=== PATIENT | female | born 1945 | race Caucasian/White ===

== ENCOUNTER 2024-04-03 08:00 | Outpatient (RCR) | payer MEDICARE, OTHER, SELFPAY ==
--- NOTE | 2024-03-05 10:59 | PTOPEVAL1 ---
Assessment and note entered by Kait Ponce, PT Evaluation Information Assessment Status Evaluation ICD-10 Condition Codes (PT) Pain in right hip M25.551,Pain in left hip M25.552 ,R26.9,Weakness R53.1 Subjective Information Pt states had been having pain in both hips this Spring and Summer but seems to have eased. notes she was also having odd things like tripping or getting out of the bath crashed to the floor landed on my left hip . Legs were weaker at this time. States pain has eased since then but also has not been walking. In this time had switched physicians so took time to get pain addressed. Was resting because didn't know what she should or shouldn't do so wasn't doing much. Started walking in the last month. States once in a while will have pain in the left hip and difficult getting into her husbands mid- sized car. Notes also sitting long periods, after getting up would have increased pain. Reports has been limiting herself with her activities, going out because of the pain, limiting taking baths because of her fall. Reported Pain Level Pain Score 0,0: Self Report Assessment PT Clinical Summary Pt presents with diagnosis of R/L hip pain. She reports multiple times she feels the pain has resolved and she is over this issue though she also verbalizes understanding of having arthritis especially in the left hip. Evaluation shows balance and gait abnormalities putting her at higher risk for falls, shows significant gluteal weakness in shannon gluteus medius and left gluteus juan c, significantly reduced ROM L hip and mildly reduced ROM R hip. She reports she is increasing her activity level again however she reports rapid weight loss over the last few months (~10 lbs per month) without change in lifestyle, and has notable cognitive deficit demo'd by difficulty answering questions, being tangential in answers, and also multiple times incomplete sentences. She has been strongly encouraged to call her PCP and discuss the rapid weight loss with him. For her hips, she was educated in benefits of addressing the ROM, strength, and balance/ambulation deficits to reduce likelihood of return pain
--- NOTE | 2024-03-05 11:00 | OPREHPOC ---
Outpatient Therapy Plan of Care This is a Multidisciplinary Plan of Care that may contain components documented by all disciplines (PT, OT, and ST.) PT Goal 1 Goal / Goal Update Pt will be independent in HEP Pt will verbalize understanding of diagnosis and prognosis Target Visit 5 PT Problem 2 PT Problem #2 Impaired Range of Motion PT Goal 1 Goal / Goal Update Pt will demo ROM flexion left hip 110 Target Visit 10 PT Goal 2 Goal / Goal Update Pt will demo internal rotation left hip 10 at 90/ 90 position Target Visit 10 PT Problem 3 PT Problem #3 Impaired Range of Motion PT Goal 1 Goal / Goal Update Pt right hip flexion will demo 120 degrees Target Visit 10 PT Problem 4 PT Problem #4 Impaired Strength PT Goal 1 Goal / Goal Update Pt will demo gluteus medius strength of 3+/5 shannon Target Visit 10 PT Goal 2 Goal / Goal Update Pt will demo left hip extension of 4/5 LLE PT Problem 5 PT Problem #5 Impaired Gait PT Goal 1 Goal / Goal Update Pt will demo normalized gait pattern with appropriate shoe mitchell, full clearance shannon, and dorsiflexion control shannon Target Visit 10
--- NOTE | 2024-04-03 08:58 | PTOPDC ---
Assessment and note entered by Kait Ponce, PT Evaluation Information Assessment Status Discharge ICD-10 Condition Codes (PT) Pain in right hip M25.551,Pain in left hip M25.552 ,R26.9,Weakness R53.1 Subjective Information Pt reports when she started therapy had hip pain and therapy has been like a miracle . States she is trying to do her exercises but has a few she is still unclear on. Pt states she twila a prolapsed uterus that has not been bothering her up until this week and now is. Wants to make sure this doesn't interfere with her exercises or visa versa. Pt states energy levels are getting better. States since starting her exercises has gotten better. States the in a fog feeling is better but still feels like she has a little fog. Pt states she is walking her block at home, has thought about walking a second block but hasn't tried it yet. Reported Pain Level Pain Score 0,0: Self Report Assessment PT Clinical Summary Pt has presented to therapy consistently for her bilat hip pain. She reports feeling much better, with her highest pain level being 3/10 and describes as achy at times. Demo's greatly improved ROM shannon without discomfort, greatly improved strength bilat without discomfort, and improved safety with her gait. She has also returned to walking her block and is planning to progress this to two blocks soon. Pt has met all of her PT and personal goals, thus she will be discharged from therapy. Plan of Care PT Services Indicated No
== END 2024-04-03 15:02 | disposition home or self-care (01) ==
LOC: ANHGOSHPT 08:00
PROVIDERS: PCP Internal Medicine; Visit Provider Orthopaedic Surgery
DX: M25.551 Pain in right hip (principal); M25.552 Pain in left hip
CPT/HCPCS: 97110; 97112; 97162; 97530; 97750

== ENCOUNTER 2024-06-10 11:37 | Outpatient (CLI) | payer MEDICARE, OTHER, SELFPAY ==
[2024-06-10 11:58] LABS: Basophils Percent Auto 0.6 % (0.2-1.2); Eosinophils Percent Auto 0.4 % (0-4.4); Hematocrit 45.5 % (37.0-47.0); Hemoglobin 15.9 g/dL (12.0-15.0); Immature Granulocyte Absolute 0.02 K/mm3 (0.00-0.031); Immature Granulocyte Percent A 0.4 % (0-0.5); Lymphocytes Absolute Auto 1.36 K/mm3 (0.9-3.2); Lymphocytes Percent Auto 26.9 % (18.3-44.2); Mean Corpuscular HGB Conc 34.9 g/dl (32-36); Mean Corpuscular Hemoglobin 30.9 pg (26-34); Mean Corpuscular Volume 88.3 fl (80-100); Mean Platelet Volume 9.9 fl (7.4-10.4); Monocytes Absolute Auto 0.2 K/mm3 (0.1-0.6); Monocytes Percent Auto 4.7 % (2.6-8.5); Neutrophils Absolute Auto 3.4 K/mm3 (1.3-6.7); Platelet Count Result 202 k/mm3 (150-375); Red Blood Count 5.15 M/mm3 (4.2-5.4); Red Cell Distribution Width 11.7 % (11.5-14.5); White Blood Count 5.1 K/mm3 (4.5-10.0)
[2024-06-10 16:58] LABS: Alanine Aminotransferase 24 U/L (6-35); Albumin Level 4.5 g/dL (3.5-5.1); Alkaline Phosphatase 60 U/L (38-126); Anion Gap 6 mmol/L (4-12); Aspartate Amino Transferase 42 U/L (14-36); Bilirubin,Total 0.7 mg/dL (0.2-1.3); Blood Urea Nitrogen 19 mg/dL (7-17); Calcium 9.1 mg/dL (8.4-10.2); Carbon Dioxide 29 mmol/L (22-30); Chloride 104 mmol/L (98-107); Estimated Glomerular Filt Rate > 60; Glucose 97 mg/dL (65-110); Lactate Dehydrogenase 231 U/L (120-246); Potassium 3.9 mmol/L (3.4-5.0); Sodium 139 mmol/L (137-145)
== END 2024-06-10 11:38 | disposition home or self-care (01) ==
PROVIDERS: PCP Internal Medicine; Visit Provider Internal Medicine Hematology & Oncology
DX: R63.4 Abnormal weight loss (principal)
CPT/HCPCS: 36415; 80053; 83615; 85025

== ENCOUNTER 2024-12-09 08:53 | Outpatient (CLI) | payer MEDICARE, OTHER, SELFPAY ==
--- OUTSIDE RECORDS SUMMARY | 2024-12-09 08:59 | XMS_ITS | CONTINUITY OF CARE DOCUMENT ---
Author Name deanna huerta Address Unknown Organization [facility] Address [address] [place] [address] Phone [phone] Care Team Providers Care Ladle Pourer Name Role Phone Zion Flores MD Unavailable ABDOULAYE DICKERSON MD Unavailable ABDOULAYE DICKERSON MD Unavailable [phone] PROBLEMS Condition Status Date Provider Notes Asthma active Zion Flores MD Hyperlipidemia completed - Zion Flores MD Family History of CVA or Stroke: completed - Zion Flores MD Familial hypercholesterolemia completed 04/03/18 - Zion Flores MD Hyperlipidemia active Zion Flores MD Weight loss active Zion Flores MD Syncope--echo ef nl, carotid <50%, 08/2024 active Gilson Ochoa FAMILY HISTORY OF HEART DISE ASE, calcium score 0 in 02/2020 active Gilson Ochoa ENCOUNTERS Date Type Provider Location Encounter Diag nosis - In-person encounter Office Visit Zion Flores MD [facility] Syncope--echo ef nl, carotid <50%, 09/04 - In-person encounter Office Visit Zion Flores MD [facility] Syncope--echo ef nl, carotid <50%, 09/04 - In-person encounter Office Visit Zion Flores MD [facility] - In-person encounter Office Visit Zion Flores MD [facility] Familial hypercholesterolemiaHyperlipidemiaWeight loss - In-person encounter Office Visit Zion Flores MD [facility] FAMILY HISTORY OF HEART DISEASE, calcium score 0 in 02/2020 - In-person encounter Office Visit Zion Flores MD [facility] - In-person encounter Office Visit Zion Flores MD [facility] - In-person encounter Office Visit Zion Flores MD [facility] HyperlipidemiaFamily History of CVA or Stroke:FAMILY HISTORY OF HEART DISEASE, calcium score 0 in 02/2020 - In-person encounter Office Visit Zion Flores MD [facility] FAMILY HISTORY OF HEART DISEASE, calcium score 0 in 02/2020 VITAL SIGNS Date Observation Value Provider Body Mass Index (Ratio) 22.26 kg/m2 Juan Francisco Flores MD blood pressure, diastolic 82 mm[Hg] Rickie Garzas blood pressure, systolic 167 mm[Hg] Ashley Lozano pulse rate 83 /min Lena Garza s oxygen saturation, oximetry 94 % Lena Lozano weight E&M 114 [lb_av] Lena Garza s blood pressure, cuff size regular Br joan Lozano height E&M 60 [in_i] Lena Garza s Body Mass Index (Ratio) 22.14 kg/m2 Juan Francisco Flores MD blood pressure, diastolic 88 mm[Hg] Ky james Cason blood pressure, systolic 149 mm[Hg] Kyl wolf Cason oxygen saturation, oximetry 96 % Genna Cason pulse rate 71 /min Genna Cason respiratory rate E&M 12 /min Genna cleary weight E&M 113.4 [lb_av] Genna Yoav blood pressure, cuff size regular Kam ramirez Yoav height E&M 60 [in_i] Genna Yoav Body Mass Index (Ratio) 21.95 kg/m2 Juan Francisco Flores MD blood pressure, diastolic 94 mm[Hg] Kam stone Carrillo blood pressure, systolic 134 mm[Hg] Steffany dumont Carrillo oxygen saturation, oximetry 98 % [facility] pulse rate 94 /min [facility] blood pressure, cuff size regular Kam chase Carrillo weight E&M 112.4 [lb_av] [facility] height E&M 60 [in_i] [facility] Body Mass Index (Ratio) 22.50 kg/m2 Juan Francisco Flores MD blood pressure, cuff size regular Blake atwood Rodríguez blood pressure, diastolic 82 mm[Hg] Ta bitha Rodríguez blood pressure, systolic 128 mm[Hg] Tab itha Rodríguez respiratory rate E&M 12 /min Yarelis Rdoríguez weight E&M 115.2 [lb_av] Yarelis Rodríguez oxygen saturation, oximetry 97 % Yarelis Rodríguez pulse rate 68 /min Yarelis Rodríguez height E&M 60 [in_i] Yarelis Rodríguez Body Mass Index (Ratio) 23.43 kg/m2 Juan Francisco Flores MD weight E&M 120 [lb_av] Gilson Ochoa blood pressure, cuff size regular Ish Weir blood pressure, diastolic 72 mm[Hg] Ish Weir blood pressure, systolic 139 mm[Hg] Aida Weir pulse rate 79 /min Malinda Weir respiratory rate E&M 18 /min Malinda Weir oxygen saturation, oximetry 97 % Malinda Weir Body Mass Index (Ratio) 24.02 kg/m2 Juan Francisco Flores MD blood pressure, diastolic 70 mm[Hg] Ri az Don blood pressure, systolic 120 mm[Hg] Yeny z medzacharisse weight E&M 123 [lb_av] Gilson medzacharisse Body Mass Index (Ratio) 25.50 kg/m2 Juan Francisco Flores MD blood pressure, diastolic 70 mm[Hg] Li nkLogyue blood pressure, systolic 130 mm[Hg] Peyton kLog blood pressure, diastolic 70 mm[Hg] Vishnu Winkler blood pressure, systolic 130 mm[Hg] Jennifer Dailysophia Winkler oxygen saturation, oximetry 98 % Fortunato Winkler respiratory rate E&M 16 /min Olya sophia YingWinkler pulse rate 80 /min Fortunato Delgado latricia weight E&M 130.6 [lb_av] Fortunato Ying bart height E&M 60 [in_i] FortunatoJennifer Yinge latricia Body Mass Index (Ratio) 25.78 kg/m2 Juan Francisco Flores MD respiratory rate E&M 16 /min Tonsha Aparicio pulse rate 72 /min Tonsha Aparicio oxygen saturation, oximetry 97 % Tonsha Aparicio blood pressure, diastolic 80 mm[Hg] To nsha Aparicio blood pressure, systolic 150 mm[Hg] Ton sha Aparicio weight E&M 132 [lb_av] Tonsha Aparicio blood pressure, resting Yes Tons barrientos Aparicio height E&M 60 [in_i] Tonsha Aparicio Body Mass Index (Ratio) 25.58 kg/m2 Juan Francisco Flores MD blood pressure, resting No [facility] blood pressure, diastolic 80 mm[Hg] To [facility] blood pressure, systolic 153 mm[Hg] Ton [facility] oxygen saturation, oximetry 97 % [facility] respiratory rate E&M 16 /min [facility] pulse rate 90 /min [facility] weight E&M 131 [lb_av] [facility] height E&M 60 [in_i] [facility] ALLERGIES Allergy Name Onset Date Reaction Criticality Status PENICILLIN High Criticality active HISTORY OF MEDICATION USE Medication Status Instructions Dates Provider Indications Com ments ezetimibe 10 mg tablet active TAKE 1 TABLET BY MOUTH EVERY DAY Zion Flores MD Ventolin HFA 90 mcg/actuation HFA aerosol inhaler active Inhale 1-2 puff using inhaler every six hours as needed Zion Flores MD ezetimibe 10 mg tablet completed 1 tablet by mouth once a day 8 - 7 Brian Shelley levalbuterol tartrate 45 mcg/actuation HFA aerosol inhaler active Inhale 2 puff by mouth every six hours 1 Zion Flores MD Asthma SOCIAL HISTORY Date Observation Value Provider smoking status Never smoker Gilson Ochoa smoking status Never smoker Zion Flores MD smoking status Never smoker Malinda Carmella social history E&M S moking History: Nancy isbell has never smoked. Gilson Ochoa social history reviewed E&M revi ewed - no changes required Gilson Ohcoa social history reviewed E&M revi ewed - no changes required Zion Flores MD smoking status Never smoker Fortunato Alex social history E&M S moking History: Nancy isbell has never smoked. Gilson Ochoa social history reviewed E&M revi ewed - no changes required Gilson Ochoa number of grandchildren Zion Flores MD J renearadha Shelley social history E&M S moking History: Nancy isbell has never smoked. Brian Shelley social history reviewed E&M revi ewed - no changes required Brian Shelley smoking status Never smoker Tramaine Aparicio social history reviewed E&M revi ewed - no changes required Nasim Messina social history E&M S moking History: Nancy isbell has never smoked. Nasim Messina smoking status Never smoker Tramaine Aparicio FAMILY HISTORY Family Member Condition Father Family History of Hy pertension: Father Family History of Hy pertension: Father Family History of CV A or Stroke: Mother Family History of Hy perlipidemia: Full Sister Family History of Hy perlipidemia: Father Family History of Hy pertension: INSURANCE PROVIDERS Payer name Policy type / Coverage type [place] [employer] party ID [id number] [place] MEDICARE Medicare [id number] ADVANCE DIRECTIVES Name Date DISCUSSED - NO DECISION MADE TREATMENT PLAN Date Name Performer [id number],S, Gilson Ayoubmedza i [id number],S, Gilson Ayoubmedza i [id number],S, Gilson Ayoubmedza i [id number],S, Gilson Ayoubmedza i [id number],S, Gilson Ahmedza i [id number],S, Gilson Ahmedza i [id number],S, Gilson Ayoubmedza i Cardiology Zion Flores MD Cardiology: H er updated medication list for this problem includes: Ventolin Hfa 90 Mcg/actuation Hfa Aerosol Inhaler (Albuterol sulfate) ..... Inhale 1-2 puff using inhaler every six hours as needed Levalbuterol Tartrate 45 Mcg/actuation Hfa Aerosol Inhaler (Levalbuterol tartrate) ..... Inhale 2 puff by mouth every six hours Zion Flores MD Cardiology:This visi t has been a part of the consistent, comprehensive, and ongoing management of the chronic medical condition(s) listed above for the patient. Zion Flores MD Cardiology Zion Flores MD Cardiology:This visi t has been a part of the consistent, comprehensive, and ongoing management of the chronic medical condition(s) listed above for the patient. Zion Flores MD Cardiology Zion Flores MD Cardiology Zion Flores MD Cardiology Zion Flores MD Cardiology: H er updated medication list for this problem includes: Levalbuterol Tartrate 45 Mcg/actuation Hfa Aerosol Inhaler (Levalbuterol tartrate) ..... Inhale 2 puff by mouth every six hours Zion Flores MD Cardiology Zion Flores MD Cardiology Gilson Ahmedzai Cardiology Gilson Ahmedzai Cardiology Gilson Ahmedzai Cardiology Gilson Ahmedzai Cardiology Gilson Ahmedzai Cardiology Gilson Ahmedzai Cardiology Gilson Ahmedzai Cardiology Brian Shelley Cardiology Brian Shelley Cardiology Brian Shelley Cardiology Brian Shelley Cardiology - Zion Flores MD Cardiology - Zion Flores MD Cardiology - Zoin Flores MD Date Name TSH, free T4, total T3 LIPID PANEL B TYPE NATRIURETIC P EPTIDE (BNP) COMPREHENSIVE METABO LIC PANEL, W/EGFR Monitor - Telemetry (Mobile Cardiac) Carotid Duplex Bilat eral Complete Echo LIPID PANEL PROBNP, N TERMINAL IRON AND TOTAL IRON BINDING CAPACITY FERRITIN CBC (INCLUDES DIFF/P LT) COMPREHENSIVE METABO LIC PANEL, W/EGFR LIPID PANEL COMPREHENSIVE METABO LIC PANEL, W/EGFR LIPID PANEL CT, Coronary Calcium Score HISTORY OF PROCEDURES Procedure Date Procedure Name Provider Procedure Notes S tatus Complex e/m visit add on Zion Flores MD completed Complex e/m visit add on Zion Flores MD completed Complex e/m visit add on Zion Flores MD completed Complex e/m visit add on Zion Flores MD completed EKG Zion Flores MD completed EKG Zion Flores MD completed EKG Zion Flores MD completed CT- Coronary CA score Zion Flores MD completed EKG Zion Flores MD completed
--- OUTSIDE RECORDS SUMMARY | 2024-12-09 08:59 | XMS_ITS | Clinical Summary ---
Author Organization [facility] Thiago Krueger Address [address] [place] [address] Care Team Providers Care Diamond Sander Name Role Phone Bradford Calix MD Primary Care Provider Allergies Active Allergy Reactions Criticality Noted Date Comments Penicillins Rash Low 06/10/2024 Medications albuterol sulfate HFA 90 mcg/actuation aerosol inhaler 2 Puffs by See Admin Instructions route see administration instructions. Active ezetimibe (ZETIA) 10 mg tablet Take 10 mg by mouth daily. Active Active Problems No known active problems Encounters Date Type Department Care Team Description 12/04/2024 External Device Data [facility] ABSTRACTION Provider, Abstract 12/02/2024 External Device Data [facility] ABSTRACTION Provider, Abstract 11/18/2024 External Device Data [facility] ABSTRACTION Provider, Abstract from Last 3 Months Family History Medical History Relation Name Comments No Known Problems Child 1 No Known Problems Child 2 No Known Problems Child 3 Heart Disease Father Skin Cancer Mother No Known Problems Sister Relation Name Status Comments Child 1 Alive Child 2 Alive Child 3 Alive Father Mother Sister Alive Social History Tobacco Use Types Packs/Day Years Used Date Smoking Tobacco: Never Alcohol Use Standard Drinks/Week Comments Never 0 (1 standard drink = 0.6 oz pur e alcohol) Comments Unknown Sex and Gender Information Value Date Recorded Sex Assigned at Not on file Legal Sex Female 11:26 AM CDT Gender Identity Not on file Sexual Orientation Not on file Last Filed Vital Signs Vital Sign Reading Time Taken Comments Blood Pressure 157/89 06/10/2024 10:44 AM [employer] Pulse 71 06/10/2024 10:40 AM [employer] Temperature 36.5 C (97.7 F) 06/10/2024 10:40 AM [employer]ER Respiratory Rate 15 06/10/2024 10:40 AM [employer]ISHER Oxygen Saturation 98% 06/10/2024 10:40 AM [employer]ISHER Inhaled Oxygen Concentration - - Weight 50.4 kg (111 lb 3.2 oz) 06/10/2024 10:40 AM [employer] Height 149.9 cm (4' 11) 06/10/2024 10:40 AM [employer]ER Body Mass Index 22.46 06/10/2024 10:40 AM FUR POLISHER Plan of Treatment Upcoming Encounters Date Type Department Care Team (Late st Contact Info) Description 12/17/2024 10:00 AM CDT Office Visit [facility] Oncology and Hematology - Martín [address] [facility] [address] [place] [address] Joe Cho MD [address] [place] [address] Health Maintenance Due Date Last Done Comments DTAP/TDAP/TD VACCINES (1 - Tdap) 02/01/1964 PNEUMOCOCCAL VACCINE 50+ YEA RS (1 of 2 - PCV) 02/01/1964 RSV VACCINE (60+ or ) (1 - 1-dose 75+ series) 02/01/2020 INFLUENZA VACCINE (#1) 2024 COVID-19 Vaccine (3 - season) 2024, 09/14/2020 OSTEOPOROSIS SCREENING 04/06/2028 04/06/2023 ZOSTER VACCINE Completed 05/29/2019, 03/11/2019 Insurance MEDICARE PART A AND B [place] [facility] [place] [address] Care Teams Diamond Sander Relationship Specialty Start Date End Date Bradford Calix MD [address] [address] PCP - General Internal Medicine 06/10/24
--- OUTSIDE RECORDS SUMMARY | 2024-12-09 08:59 | XMS_ITS | Data Portability ---
Author Organization [place] [facility], Main Office Address [address] [place] [address] Care Team Providers Care Director Mba Name Role Phone JAYLA BRADFORD Primary Care Provider [phone] JORGE LUIS HAAS Orthopedic Surgeon [phone] DIMPLE CHO Hematology/Oncology ZION BOLAND Vp Care Management Assessment Encounter Date Assessment Date Assessment LastModified by Organization Details LastModified Time 12/03/2023 12/03/2023 04/06/23 Chol. 295H, LDL 213 H Gluc. 100 H, BUN 20 H, ALB. 4.5 H Not available 12/03/2023 09:29:39 04/07/2024 04/07/2024 04/06/23 Chol. 295H, LDL 213 H Gluc. 100 H, BUN 20 H, ALB. 4.5 H 11/27/2023: Dr Boland [facility] Gluc 108 Chol 267, LDL 184 WBC 8.4 Not available 04/03/2024 19:24:25 08/06/2024 08/06/2024 04/06/23 Chol. 295H, LDL 213 H Gluc. 100 H, BUN 20 H, ALB. 4.5 H 11/27/2023: Dr Mark HUERTA Gluc 108 Chol 267, LDL 184 WBC 8.4 06/10/2024: Dr Cho AST 42 HGB 15.9 Not available 08/06/2024 11:17:00 11/05/2024 11/05/2024 04/06/23 Chol. 295H, LDL 213 H Gluc. 100 H, BUN 20 H, ALB. 4.5 H 11/27/2023: Dr Boland [facility] Gluc 108 Chol 267, LDL 184 WBC 8.4 06/10/2024: Dr Cho AST 42 HGB 15.9 Not available 11/05/2024 10:37:00 Plan of Treatment Reminders Order Date Submit Date Provider Last Modified By Organization Details Last Modified Time Details Appointments Any 15 2024 08:30A M Bradford montgomery MD Not available Not available Not available Lab vitamin D, 25-hydrox y, total, serum 2024 025 MALLIKA [facility], [address], [place], [address], 11/05/2024 10:57:22 lipid panel, serum 2024 025 MALLIKA [facility], [address], [place], [address], 11/05/2024 10:57:23 CMP, serum or plasma 2024 025 MALLIKA [facility], [address], [address], [place], [address], 11/05/2024 10:57:22 CBC w/ auto diff 2024 025 MALLIKA [facility], [address], [place], [address], 11/05/2024 10:57:23 TSH + free T4, serum 2024 025 MALLIKA [facility], [address], [place], [address], 11/05/2024 10:57:22 vitamin D, 25-hydrox y, total, serum 2023 025 [email or web address] [facility], [address], [place], [address], 08/06/2024 11:25:27 lipid panel, serum 2023 025 [email or web address] [facility], [address] [facility], [place], [address], 08/06/2024 11:25:27 CMP, serum or plasma 2023 025 [email or web address] [email or web address] [facility], [address] [facility], [facility], [place], [address], 08/06/2024 11:25:27 CBC w/ auto diff 2023 025 [email or web address] [email or web address] [facility], [address] [facility], [facility], [place], [address], 08/06/2024 11:25:27 TSH + free T4, serum 2023 025 [email or web address] [facility], [address] [facility], [facility], [place], [address], 08/06/2024 11:25:27 vitamin D, 25-hydrox y, total, serum 2023 024 [email or web address] [facility], [address] [facility], [facility] [address], [place], [address], 10/08/2024 08:11:38 lipid panel, serum 2023 024 [email or web address] [facility], [address] [facility], [facility] [address], [place], [address], 10/08/2024 08:11:37 CMP, serum or plasma 2023 024 MALLIKA [facility], [address] [facility], [facility] 2, [place], [address], 06/10/2024 21:03:06 CBC w/ auto diff 2023 024 MALLIKA [facility], [address] [facility], [facility] 2, [place], [address], 06/10/2024 16:46:19 TSH + free T4, serum 2023 024 [email or web address] [facility], [address] [facility], [facility] [address], [place], [address], 10/08/2024 08:11:37 vitamin D, 25-hydrox y, total, serum 2023 024 [email or web address] [facility], [address] [place] [address] 2, [place], [address], 06/10/2024 12:28:42 lipid panel, serum 2023 024 [facility], [address] [facility], [facility], [place], [address], 06/10/2024 12:28:41 CMP, serum or plasma 2023 024 [email or web address] [facility], [address] [place] [address], [facility] [address], [place], [address], 06/10/2024 12:28:41 CBC w/ auto diff 2023 024 [email or web address] [facility], [address] [facility] 2, [place], [address], 06/10/2024 12:28:41 TSH + free T4, serum 2023 024 [email or web address] [facility], [address] [facility] 2, [place], [address], 06/10/2024 12:28:42 Referral orthopedi c surgeon referral - Please call patient to schedule an appointme nt. Thank you. 2024 025 SRINI Haas, [address], [address], [place], [address], 11/06/2024 13:37:17 orthopedi c surgeon referral 2023 025 Jorge Luis Haas MD, [address], [place] [place], [address], 08/07/2024 09:58:07 cardiolog ist referral 2023 025 [email or web address] [place], [address], [address], [place], [address], 08/07/2024 09:58:07 hematolog ist/oncol ogist referral 2023 024 MALLIKA Cho MD, [address], [place], [address], 06/10/2024 15:44:11 orthopedi c surgeon referral 2023 024 [email or web address] 2 Jorge Luis Haas MD, [address] [facility] [address], [place], [address], 10/06/2024 08:24:28 pelvic floor therapy referral 2023 024 [email or web address] [facility], [address] [place], [address], 11/03/2024 08:47:09 cardiolog ist referral 2023 024 2 [place], [address], [address], [place], [address], 10/06/2024 08:24:29 orthopedi c surgeon referral 2023 024 [email or web address] Jorge Luis Haas MD, [address] [facility] [address] [place], [address], 06/11/2024 14:47:21 urologist referral 2023 024 [email or web address] Ector Whitehead MD, [address] [facility] [address], [address], [place], [address], 12/31/2023 08:21:49 cardiolog ist referral 2023 024 [place], [address], [address], 05/20/2024 10:30:15 Procedures None recorded. Surgeries None recorded. Imaging XR, hip + pelvis, bilateral , 3 or 4 view 2023 024 [facility], [address] [place] [address], [place], [address], 12/12/2023 16:31:12 Medication Orders None recorded. Patient TargetsNo targets recorded. Patient Instructions Encounter Date Encounter Id Patient Instructions Last Modified By Organization Details Last Modified Time 12/03/2023 [id number] dementia rating scale-2* [email or web address] 2 Not available 12/03/2023 17:46:17 depression screening* [email or web address] 2 Not available 12/03/2023 17:46:18 alcohol misuse* [email or web address] 2 Not available 12/03/2023 17:46:18 Timed Up and Go test (TUG)* [email or web address] 2 Not available 12/03/2023 17:46:18 multi-dimensiona l health assessment questionnaire* Not available 12/03/2023 10:27:21 Personalized a lt Plan and Screening Recommendations Advance Directives - Do you have one? Yes Advance Directives - Do we have your advance directive on file in your health record? No, please bring in a copy at your earliest convenience Primary Prevention/Interven tion (prevents or decreases the chance of common diseases from occurring) Smoking Risk: Non Smoker Alcohol Misuse Screening: Negative Weight: Appropriate Physical activity: Need more exercise/physical activity minimum of 20-30 minutes activity that causes mild breathlessness/day Nutrition: Average Refer to attached handout Heart-Healthy Diet: After Your Visit Fall Risk (screened today): Intermediate Refer to attached handout Preventing Falls: After your Visit Vaccines Pneumococcal: Recommended today Influenza: Your next one in the fall of this year Chronic Disease Risks Stroke: Intermediate Risk I have no recommendations Heart Attack: Intermediate Risk I have no recommendations Clogging of the Arteries: Intermediate Risk I have no recommendations Diabetes: Intermediate Risk Drastically limit sugar and products made with any type of flour (bread, pasta, cereal, cookies, crackers, etc.) Secondary Prevention/Interven tion (detects treatable diseases before they may cause symptoms, disability, or ) Breast Cancer Screening with mammogram: Cervical/Uterine/Ov kim Cancer Screening: Osteoporosis Screening: Date Screening Last Performed: Colon Cancer Screening: Date Screening Last Performed: Eye Disease Screening: Ordered Recommended today Recommended today, but you have declined No Eye exam necessary Your next exam in: Dementia Risk: Depression Screening: Active diagnosis, Continue current treatment plan [email or web address] Not available 12/03/2023 10:31:45 Reason for Referral Vp Care Management Referral for Hy perlipidemia Referring Physician: Bradford Calix Internal Medicine, Encounter Date: 12/03/2023 Urologist Referral for Cysto mauro Referring Physician: Bradford Calix Internal Medicine, Encounter Date: 12/03/2023 Orthopedic Surgeon Referral for Pain of bilateral hip joints Referring Physician: Samantha Tomlinson Medicine, Encounter Date: 12/12/2023 Orthopedic Surgeon Referral for Pain of bilateral hip joints Referring Physician: Samantha Tomlinson Medicine, Encounter Date: 04/07/2024 Vp Care Management Referral for Hy perlipidemia Referring Physician: Samantha Tomlinson Medicine, Encounter Date: 04/07/2024 Pelvic Floor Therapy Referra l for Cystocele Referring Physician: Samantha Tomlinson Medicine, Encounter Date: 04/07/2024 Referring Physician: Samantha Tomlinson, Encounter Date: 04/07/2024 Orthopedic Surgeon Referral for Pain of bilateral hip joints Referring Physician: Samantha Tomlinson, Encounter Date: 08/06/2024 Vp Care Management Referral for Hy perlipidemia Referring Physician: Bradford Calix, Internal Medicine, Encounter Date: 08/06/2024 Orthopedic Surgeon Referral for Pain of bilateral hip joints Please call patient to schedule an appointment. Thank you. Referring Physician: Bradford Calix, Internal Medicine, Encounter Date: 11/05/2024 Results Created Date Observation Date Name Description Value Unit Range Abnormal Flag Note LastModifiedBy Organization Detail LastModifiedTime 12/12/19 24 XR, hip + pelvi s, bilat eral, 3 or 4 view [facility] [address] [place], [place] [address] [phone] Patien t Name: NIKOLAS SAUCEDO [place] Access ion #: [id number] Sex: F : 1944 9 Dictat ed By: More Brandon Attend ing Physic dawit: NIKKO HARKINS Orderi ng Physic dawit: NIKKO HARKINS Exam Date: 2023 14:47 PM Exam Name: XR HIPS/P MARI BILAT 3-4V Admitt ing Diagno sis(es ): CLINIC AL INDICA TION: bilate ral hip pain TECHNI QUE: One radiog raphic views of the pelvis and two views of the bilate ral hip were obtain ed. Compar calos: None FINDIN GS/IMP RESSIO N: There is no eviden ce of acute fractu re or disloc ation. 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 Electr onical ly Signed by: More Brandon at 2023 15:29: 27 PM Page 1 [email or web address] [facility] ([facility]) [address] [place], [address], 12/18/2023 16:59:33 Result Notes None recorded. Problems Name Problem SNOMED Code Status Onset Date Resolution Date Notes Provider Name and Address Organization Details Recorded Time Asthma 324226171 Active Not Available [facility] 3 05:23:15 Closed fracture proximal humerus, greater tuberosity 517404090 Active Not Available [facility] 3 05:23:15 Foot pain 22426874 Active Not Available [facility] 3 05:23:15 Hyperlipid emia 06994324 Active Not Available [facility] 3 05:23:15 Chronic obstructiv e pulmonary disease 17877215 Active 2022 Not Available [facility] 3 05:23:15 Pain of left hip joint 9211075627340 00 Active 2023 Bradford bhatt MD [address], [address], [place], [address] , [facility] 4 10:03:37 Cystocele 929442217 Active 2023 Bradford bhatt MD [address], [address], [place], [address] , [facility] 4 10:04:32 Pain of bilateral hip joints 6349357564084 9100 Active 2023 Bradford bhatt MD [address], [place], [address] , [facility] 4 14:58:52 Unexplaine d weight loss 942576295 Active 2023 Bradford bhatt MD [address], [place], [address] , [facility] 4 10:06:43 Vitamin D deficiency 34335473 Active 2024 Bradford bhatt MD [address], [address], [place], [address] , [facility] 5 10:36:54 Problem Notes None recorded. Procedures Surgical History Date Name Laterality Status Provider Name and Address Organization Details Recorded Time 4 Medicare Wellness CPT Code, subsequent completed Yair Weiss LPN [facility] 11/29/2023 17:03:36 Imaging Results None recorded. Procedure Notes None recorded. Medical Equipment None Reported. Allergies Allergen ID Allergen Name Allergen Category Reaction Reaction Severity Criticality Documentation Date Start Date Code Code System Note Provider Name and Address Organization Details Recorded Time 75028 Product containin g penicilli n (product) medicatio n Not available Not available Not available 09/13/2022 97729 8001 SNOMED Not Available [facility] 3 15:43:51 Medications Name Sig Start Date Stop Date Status Note LastModified by Organization Details LastModified Time clindamycin HCl 300 mg capsule active Not Available Not Available Not Available neomycin-po lymyxin-dex ameth 3.5 mg/mL-10,00 0 unit/mL-0.1 % eye drops INSTILL 2 DROP INTO AFFECTED EYE(S) BY OPHTHALMI C ROUTE EVERY 4-6 HOURS active Not Available Not Available No t Available tobramycin 0.3 % eye drops active Not Available Not Available Not Available clotrimazol e-betametha sone 1 %-0.05 % topical cream APPLY TO THE AFFECTED AND SURROUNDI NG AREAS OF SKIN BY TOPICAL ROUTE 2 TIMES PER DAY IN THE MORNING AND EVENING FOR 2 WEEKS 03/11 completed Not Available Not Available Not Available albuterol sulfate HFA 90 mcg/actuati on aerosol inhaler INHALE 1 TO 2 PUFFS BY MOUTH EVERY 6 HOURS NEEDED active Not Available Not Available No t Available Vitamin D2 1,250 mcg (50,000 unit) capsule active Not Available Not Available Not Available clotrimazol e 1 % topical cream LILLIE EXT AA BID 03/11 completed Not Available Not Available Not Available ezetimibe 10 mg tablet TAKE 1 TABLET BY MOUTH EVERY DAY active Not Available Not Available No t Available levalbutero l HFA 45 mcg/actuati on aerosol inhaler INHALE 2 PUFFS BY MOUTH EVERY 6 HOURS 08/06 completed Not Available Not Available Not Available calcium 11/05 completed Not Available Not Available Not Available Fosteum 27 mg-20 mg-200 unit capsule TAKE 1 CAPSULE BY MOUTH TWICE DAILY DIRECTED 03/11 completed Not Available Not Available Not Available TL G-Fol OS 500 mg-1.1 mg tablet TAKE 1 TABLET BY MOUTH TWICE DAILY 03/11 completed Not Available Not Available Not Available Caltrate 600 plus D active Not Available Not Available N ot Available Lotemax 0.5 % eye gel drops active Not Available Not Available Not Available Prolensa 0.07 % eye drops active Not Available Not Available Not Available Shingrix (PF) 50 mcg/0.5 mL intramuscul ar suspension, kit 12/18 completed Not Available Not Available Not Available Vitals Date Recorded Body height Body mass index (BMI) Body weight Body temperature Heart rate Systolic And Diastolic Provider Name and Address Organization Details Last Updated DateTime 5 149.86 cm 22.8 kg/m2 74439.9 4 g 97.5 [degF] 78 /min 118/70 mm[Hg] LIBAN Logan [facility] [employer] [facility] 5 10:46:22 Date Recorded Body height Body mass index (BMI) Body weight Body temperature Heart rate Oxygen saturation Oxygen saturation in Arterial blood by Pulse oximetry Systolic And Diastolic Provider Name and Address Organization Details Last Updated DateTime 5 149.86 cm 22.9 kg/m2 54487.7 3 g 97.3 [degF] 72 /min 98 % 98 % 114/64 mm[Hg] Karla Darby MA [facility] [employer] [facility] 5 10:19:44 Date Recorded Body height Body mass index (BMI) Body weight Body temperature Heart rate Systolic And Diastolic Provider Name and Address Organization Details Last Updated DateTime 4 149.86 cm 23 kg/m2 15512.5 3 g 97.5 [degF] 78 /min 120/60 mm[Hg] Roxane Perez Wiley [facility] [employer] [facility] 4 09:26:32 Date Recorded Body height Body mass index (BMI) Body weight Body temperature Heart rate Systolic And Diastolic Provider Name and Address Organization Details Last Updated DateTime 4 149.86 cm 23.6 kg/m2 67417.3 1 g 97.6 [degF] 78 /min 122/68 mm[Hg] Roxane Perez Wiley [facility] [employer] [facility] 4 14:45:34 Date Recorded Body height Body mass index (BMI) Body weight Body temperature Heart rate Systolic And Diastolic Provider Name and Address Organization Details Last Updated DateTime 4 149.86 cm 22.4 kg/m2 03505.7 5 g 97.4 [degF] 78 /min 122/74 mm[Hg] LIBAN Logan [facility] [employer] [facility] 09:41:00 Social History Question Answer Notes LastModified by Organization Details LastModified Time Tobacco Smoking Status Never Smoker LIBAN Logan, KATHIA Chawla Adriane DE [employer] [facility] 12/03/2023 09:19:27 Do You Have An Advance Directive? Yes [email or web address] Information not available 12/03/2023 Are You Blind Or Do You Have Difficulty Seeing? No Information not available 12/03/2023 What Is Your Level Of Caffeine Consumption? Occasional Information not available 12/03/2023 In The 14 Days Before Symptom Onset, Have You Had Close Contact With A Laboratory-confi rmed COVID-19 While That Case Was Ill? No Information not available 12/03/2023 In The 14 Days Before Symptom Onset, Have You Had Close Contact With A Person Who Is Under Investigation For COVID-19 While That Person Was Ill? No Information not available 12/03/2023 Are You Deaf Or Do You Have Serious Difficulty Hearing? No Information not available 12/03/2023 What Type Of Diet Are You Following? GLUTENFREE Information not available 12/03/2023 What Is The Highest Grade Or Level Of School You Have Completed Or The Highest Degree You Have Received? [id number] Information not available 12/03/2023 Have There Been Any Changes To Your Family Or Social Situation? No [email or web address] Information not available 12/03/2023 What Is The Fluoride Status Of Your Home? Unknown Information not available 12/03/2023 Are There Any Guns Present In Your Home? No Information not available 12/03/2023 Do You Use Insect Repellent Routinely? Yes [email or web address] Information not available 12/03/2023 Where Do You Live? SingleLevelHouse Information not available 12/03/2023 Presence Of Domestic Violence No [email or web address] Information not available 12/03/2023 Guns Present In The Home? No Information not available 12/03/2023 Are You Able To Care For Yourself? Yes Information not available 12/03/2023 Are You Blind Or Do Yo Have Difficulty Seeing? No Information not available 12/03/2023 Are You Deaf Or Do You Have Serious Difficulty Hearing? No Information not available 12/03/2023 General Stress Level? Low Information not available 12/03/2023 Live Alone Of With Others? With Others [email or web address] Information not available 12/03/2023 Are You Following A Low Salt Diet? No [email or web address] Information not available 12/03/2023 Do You Have A Medical Power Of Sales Ledger Clerk? Yes Daughter Is TIFFANY [email or web address] Information not available 12/03/2023 What Was The Date Of Your Most Recent Tobacco Screening? 11/05/2024 [email or web address] Information not available 11/05/2024 Do You Have Any Pets? Yes Dog [email or web address] Information not available 12/03/2023 What Is Your Relationship Status? Information not available 12/03/2023 Do You Use Your Seat Belt Or Car Seat Routinely? Yes Information not available 12/03/2023 Do You Have Smoke And Carbon Monoxide Detectors In Your Home? Yes Information not available 12/03/2023 Are You Passively Exposed To Smoke? No Information not available 12/03/2023 Are There Any Smokers In Your House? No Information not available 12/03/2023 Do You Use Sunscreen Routinely? Yes [email or web address] Information not available 12/03/2023 Has Tobacco Cessation Counseling Been Provided? No N/a Information not available 12/03/2023 Have You Recently Traveled Abroad? No Information not available 12/03/2023 Do You Have Difficulty Walking Or Climbing Stairs? No Information not available 12/03/2023 Do You Have Any Dietary Restrictions? Yes Gluten Free Diet Information not available 12/03/2023 Sex: Female Functional Status Question Answer Note LastModified by Organizat ion Details LastModified Time Do you use any illicit or recreational drugs? No Information not available 12/03/2023 Do you or have you ever used any other forms of tobacco or nicotine? No Information not available 12/03/2023 What is your level of alcohol consumption? None Information not available 12/03/2023 Are you currently employed? No retired Information not available 12/03/2023 Do you have transportation difficulties? No Information not available 12/03/2023 Are you able to walk? YESWOREST Information not available 12/03/2023 Do you have difficulty doing errands alone? No Information not available 12/03/2023 Are you able to care for yourself? Yes Information n ot available 12/03/2023 Do you have difficulty dressing or bathing? No Information not available 12/03/2023 What is your exercise level? Moderate Information not available 12/03/2023 Mental Status Question Answer Note LastModified by Organizat ion Details LastModified Time Do you feel stressed (tense, restless, nervous, or anxious, or unable to sleep at night)? [id number] [email or web address] Information not available 12/03/2023 Do you have difficulty concentrating, remembering or making decisions? No [email or web address] Information no t available 12/03/2023 Family History Relationship Description Onset Age of this Age Resolved Age Notes LastModified by Organization Details LastModified Time Mother Hyperlipidem ia [email or web address] Not available 10:12:50 Mother Malignant melanoma [email or web address] Not available 10:12:50 Sister Hyperlipidem ia [email or web address] Not available 10:12:50 Sister Hypertensive disorder Not available 2023 09:16:10 Father Hypertensive disorder Not available 2023 09:16:10 Medical History No medical history recorded. Gynecological History Statement/Question Response How many live births 3 Date of Last Colonoscopy Date of Last Mammogram Date of LMP Most Recent Bone Density Date of Last Pap Current Control Method Menopause Obstetrics History GPAL:G 4 P 3 0 1 3 Type Value Multiple Births 0 Full Term 3 Induced 0 Spontaneous 1 Premature 0 Living 3 Ectopics 0 Total 4 Immunizations Vaccine Type Date Status Note Provider Wilberto wray and Address Organization Details Recorded Time zoster recombinant 9 completed LIBAN Logan null, [place] [facility] 04/07/2024 09:41:42 COVID-19, mRNA, LNP-S, PF, 30 mcg/0.3 mL dose 1 completed Roxane Perez RMA null, [place] - [facility] 04/07/2024 09:41:42 COVID-19, mRNA, LNP-S, PF, 30 mcg/0.3 mL dose 1 completed Roxane Perez RMA null, [place] [facility] 04/07/2024 09:41:42 zoster recombinant 9 completed Not Available [facility] 04/20/2023 05:23:15 Influenza, high-dose, trivalent, PF 5 completed Bradford Calix MD [address] [place] [address], [address] [address], [place], [address], [facility] 08/06/2024 11:25:27 Past Encounters Encounter ID Performer Location Encounter Start Date Encounter Closed Date Diagnosis/Indication Diagnosis SNOMED-CT Code Diagnosis ICD10 Code Diagnosis Note [id number] Bia Avalos MD [facility] myers [address] [place] [address] [place] [address] 01/24/2022 00:00:00 01/24/2022 21:16:32 [id number] Bia Avalos MD [facility] [place] [address] 04/03/2023 09:58:43 04/03/2023 10:28:53 Screening for malignant neoplasm of breast [id number] Z12.39 [facility] risk of osteoporosis [id number] Z91.89 Hyperlipidemia 01744914 E78.5 Watching diet [id number] Bradford bhatt MD [facility] Internal Med Reginaldo myers [address] [place] [address] 12/03/2023 08:58:11 12/03/2023 10:30:17 Adult health examination [id number] Z00.00 Screening for disorder [id number] Z13.9 Depression screening 171 420985 Z13.31 Hyperlipidemia 08327874 E78.[address] Boland [facility] 12/13/2022 , next in one year Screening - NAD 48750517 3 Z13.9 02/13/2022: Cologuard Neg. 04/06/23;vD exa. Osteopenia right total hip, Left hip, and spine. 04/09/23:ZULEIMA Dorado Neg. BIRADS Neg.shingr ix vaccine UTDGet yearly flu shotGet Tdap if not doneGet COVID 19 vaccineGet RSV vaccine RTC in 3 months, do labs, ER if worse, she did verbalize her understand ing of the above Screening for osteoporosis 799228967 Z13.820 Asthma 528737282 J45.90 9 On albuterolD oes wellRefill done by [facility] Dr Boland Pain of le ft hip joint [id number] 10521 M25.552 S/p trip and fall about 7 days ago, much better now, declines any testing or referrals, states that she has again started exercising Cystocele 398203328 N81. 10 Has a history of bladder prolapse, will refer to urology, no complaints of UTI at this time, has done Kegel in the past [id number] Bradford bhatt MD [facility] Internal Med Reginaldo myers [address] [facility] [place] [address] 12/12/2023 14:22:54 12/12/2023 15:16:19 Pain of bilateral hip joints [id number] 7871356 M25.551 M25.552 Get shannon hip/pelvis xraysTake OTC NSAIDs with food as neededGet a referral to Dr Haas, ER if worse, she and her verbalized her understand ing of the above [id number] Bradford bhatt MD [facility] Internal Med Reginaldo kamala [address] [facility] [place] [address] 04/07/2024 09:30:47 04/07/2024 10:10:19 Pain of bilateral hip joints [id number] 2909776 M25.551 M25.552 Get shannon hip/pelvis xraysTake OTC NSAIDs with food as neededGet a referral to Dr Haas, ER if worse, she and her verbalized her understand ing of the above Hyperlipidemia 69243889 E78.[address] Boland [facility] 12/13/2022 , next in one year Screening - NAD 28623544 3 Z13.9 02/13/2022: Cologuard Neg. 04/06/23;vD exa. Osteopenia right total hip, Left hip, and spine. 04/09/23:ZULEIMA Dorado Neg. BIRADS Neg.shingr ix vaccine UTDGet yearly flu shotGet Tdap if not doneGet COVID 19 vaccineGet RSV vaccine RTC in 3 months, do labs, ER if worse, she did verbalize her understand ing of the above Screening for osteoporosis 133074900 Z13.820 Asthma 264765752 J45.90 9 On albuterolD oes wellRefill done by [facility] Dr Boland Pain of le ft hip joint [id number] 74695 M25.552 S/p trip and fall about 7 days ago, much better now, declines any testing or referrals, states that she has again started exercising OV 04/07/2024 : States that she did see ortho and did PT and this has completely resolved her pain, she is now doing home PT Cystocele 963042034 N81. 10 Has a history of bladder prolapse, will refer to urology, no complaints of UTI at this time, has done Kegel in the past, she would like to get a referral to do PT for this also, will refer for pelvic floor therapy Unexplaine d weight loss 347769492 R63.4 Has noted weight loss, has good appetite but is concerned that her weight is lower than the last OV apt, will refer to heme/onc and may need further w/u for this [id number] Bradford bhatt MD [facility] Primary Care [facility] [address] [place] [address] 08/06/2024 10:23:41 08/06/2024 11:20:46 Pain of bilateral hip joints [id number] M25.551 M25.552 Take OTC NSAIDs with food as neededGet a referral to Dr Haas, ER if worse, she and her verbalized her understand ing of the above XRay Hip: Severe OA, see case Hyperlipidemia 55309542 E78.[address] Boland [facility] 12/13/2022 , next in one year Screening - NAD 27831279 3 Z13.9 02/13/2022: Cologuard Neg. 04/06/23;vD exa. Osteopenia right total hip, Left hip, and spine. 04/09/23:ZULEIMA Dorado Neg. BIRADS Neg.shingr ix vaccine UTDGet yearly flu shotGet Tdap if not doneGet COVID 19 vaccineGet RSV vaccine RTC in 3 months, do labs, ER if worse, she did verbalize her understand ing of the above Screening for osteoporosis 044747186 Z13.820 Asthma 730049865 J45.90 9 On albuterolD oes wellRefill done by [facility] Dr Boland Pain of le ft hip joint 3805755091 55276 M25.552 S/p trip and fall about 7 days ago, much better now, declines any testing or referrals, states that she has again started exercising OV 04/07/2024 : States that she did see ortho and did PT and this has completely resolved her pain, she is now doing home PT Cystocele 338223935 N81. 10 Has a history of bladder prolapse, will refer to urology, no complaints of UTI at this time, has done Kegel in the past, she would like to get a referral to do PT for this also, will refer for pelvic floor therapy Elyaine d weight loss 539648891 R63.4 Has noted weight loss, has good appetite but is concerned that her weight is lower than the last OV apt, will refer to heme/onc and may need further w/u for this Dr Cho 06/17/2024 : F/u labs in 6 months Administra tion of influenza vaccine [id number] Z23 [id number] Bradford bhatt MD [facility] Primary Care [facility] [address] [place] [address] 11/05/2024 10:11:43 11/05/2024 11:04:28 Pain of bilateral hip joints [id number] 5814082 M25.551 M25.552 Take OTC NSAIDs with food as neededGet a referral to Dr Haas, ER if worse, she and her verbalized her understand ing of the above XRay Hip: Severe OA, see case Hyperlipidemia 81711396 E78.[address] Boland [facility] last OV 08/14/2024 Screening - NAD 44318706 3 Z13.9 02/13/2022: Cologuard Neg. 04/06/23;vD exa. Osteopenia right total hip, Left hip, and spine. 04/09/23:MA M. Neg. BIRADS Neg.shingr ix vaccine UTDGet yearly flu shotGet Tdap if not doneGet COVID 19 vaccineGet RSV vaccine RTC in 3 months, do labs, ER if worse, she did verbalize her understand ing of the above Screening for osteoporosis 089213141 Z13.820 Asthma 489733101 J45.90 9 On albuterolD oes wellRefill done by [facility] Dr Boland Pain of le ft hip joint [id number] 70114 M25.552 S/p trip and fall about 7 days ago, much better now, declines any testing or referrals, states that she has again started exercising OV 04/07/2024 : States that she did see ortho and did PT and this has completely resolved her pain, she is now doing home PT Cystocele 283069569 N81. 10 Has a history of bladder prolapse, will refer to urology, no complaints of UTI at this time, has done Kegel in the past, she would like to get a referral to do PT for this also, will refer for pelvic floor therapy Unexplaine d weight loss 085734619 R63.4 Has noted weight loss, has good appetite but is concerned that her weight is lower than the last OV apt, will refer to heme/onc and may need further w/u for this Dr Cho 06/17/2024 : F/u labs in 6 months Health Concerns Section Related Observation LastModified by Organization Lakhwinder ls LastModified Time None Recorded Concern Status LastModified by Organization Details LastModified Time None Recorded Advance Directives Directive Y: Payers Encounter Date Sequence Insurance Name Policy Number Policy Umana Covered Member ID Umana Member ID Guarantor Name 12/03/2023 1 [place] Cherise A Lutley [id number] Cherise Lutley 12/03/2023 2 [employer] (MEDICARE SUPPLEMENT) Cherise A Lutley [id number] Cherise Lutley 12/12/2023 1 [place] Cherise A Lutley [id number] Cherise Lutley 12/12/2023 2 [employer] (MEDICARE SUPPLEMENT) Cherise A Lutley [id number] Cherise Lutley 04/07/2024 1 [place] Cherise A Lutley [id number] Cherise Lutley 04/07/2024 2 [employer] (MEDICARE SUPPLEMENT) Cherise A Lutley [id number] Cherise Lutley 08/06/2024 1 [place] Cherise A Lutley [id number] Cherise Lutley 08/06/2024 2 [employer] (MEDICARE SUPPLEMENT) Cherise A Lutley [id number] Cherise Lutley 11/05/2024 1 [place] Cherise A Lutley [id number] 5 Cherise Lutley 11/05/2024 2 [employer] (MEDICARE SUPPLEMENT) Cherise A Lutley [id number] Cherise Lutley Notes Date Note Type Note Provider Name and Address Organization Details Recorded Time 12/03/2023 text/html OV 12/03/2023:Here to establish care Present Hx:Deja Here to discuss above, she is here with her , she is doing very well, she has seen Dr Boland and states that Dr Boland [facility] does do her labs Bradford Calix MD [address] [place] [address], [place] [address], [place], [address], [facility] [employer] 12/03/2023 17:53:11 12/12/2023 text/html OV 12/03/2023:Here to establish care Present Hx:Deja Here to discuss above, she is here with her , she is doing very well, she has seen Dr Boland and states that Dr Mark CHURCHILL does do her labs OV 12/12/2023: ACV:Here with shannon hip pain, R>L, no remote or acute trauma, c/o pain on the sides of the hip, no N/T or weakness noted, she is here with her Bradford Calix MD [address] [facility], [facility] [address], [place], [address], [facility] [email or web address] [facility] 12/12/2023 15:55:31 04/07/2024 text/html OV 12/03/2023:Here to establish care Present Hx:LEONORDAjudith Here to discuss above, she is here with her , she is doing very well, she has seen Dr Boland and states that Dr Mark CHURCHILL does do her labs OV 12/12/2023: ACV:Here with shannno hip pain, R>L, no remote or acute trauma, c/o pain on the sides of the hip, no N/T or weakness noted, she is here with her OV 04/07/2024: Here for her routine apt, she is doing well today, she is here with her , she states that she has noted that she has lost weight and wants to discuss this Bradford Calix MD [address] [facility], [facility] [address], [place], [address], [facility] [employer] [facility] 04/07/2024 15:37:28 08/06/2024 text/html OV 12/03/2023:Here to establish care Present Hx:HLDAjudith Here to discuss above, she is here with her , she is doing very well, she has seen Dr Boland and states that Dr Mark CHURCHILL does do her labs OV 12/12/2023: ACV:Here with shannon hip pain, R>L, no remote or acute trauma, c/o pain on the sides of the hip, no N/T or weakness noted, she is here with her OV 04/07/2024: Here for her routine apt, she is doing well today, she is here with her , she states that she has noted that she has lost weight and wants to discuss this OV 08/06/2024: Here for her f/u apt, she is doing well today, she is here with her Bradford Calix MD [address], [place], [address], [employer] [facility] 08/06/2024 11:40:40 11/05/2024 text/html OV 12/03/2023:Here to establish care Present Hx:HLDAsthma Here to discuss above, she is here with her , she is doing very well, she has seen Dr Boland and states that Dr Boland [facility] does do her labs OV 12/12/2023: ACV:Here with shannon hip pain, R>L, no remote or acute trauma, c/o pain on the sides of the hip, no N/T or weakness noted, she is here with her OV 04/07/2024: Here for her routine apt, she is doing well today, she is here with her , she states that she has noted that she has lost weight and wants to discuss this OV 08/06/2024: Here for her f/u apt, she is doing well today, she is here with her OV 11/05/2024: Here for her f/u apt, she feels well today, she is here with her , states that she has now started gaining weight again Bradford Calix MD [address], [place], [address], [facility] 11/05/2024 15:59:35 OBGyn Episode No OBEpisode recorded.
[2024-12-09 09:42] LABS: Basophils Percent Auto 0.9 % (0.2-1.2); Eosinophils Percent Auto 1.2 % (0-4.4); Hematocrit 45.9 % (37.0-47.0); Hemoglobin 16.1 g/dL (12.0-15.0); Lymphocytes Absolute Auto 1.33 K/mm3 (0.9-3.2); Lymphocytes Percent Auto 38.7 % (18.3-44.2); Mean Corpuscular HGB Conc 35.1 g/dl (32-36); Mean Corpuscular Hemoglobin 30.7 pg (26-34); Mean Corpuscular Volume 87.6 fl (80-100); Monocytes Absolute Auto 0.3 K/mm3 (0.1-0.6); Monocytes Percent Auto 7.6 % (2.6-8.5); Neutrophils Absolute Auto 1.8 K/mm3 (1.3-6.7); Neutrophils Percent Auto 51.6 % (45.5-73.1); Platelet Count Result 194 k/mm3 (150-375); Red Blood Count 5.24 M/mm3 (4.2-5.4); Red Cell Distribution Width 11.7 % (11.5-14.5); White Blood Count 3.4 K/mm3 (4.5-10.0)
[2024-12-09 11:03] LABS: Alanine Aminotransferase 20 U/L (6-35); Albumin Level 4.4 g/dL (3.5-5.1); Alkaline Phosphatase 67 U/L (38-126); Anion Gap 8 mmol/L (4-12); Aspartate Amino Transferase 47 U/L (14-36); Blood Urea Nitrogen 20 mg/dL (7-17); Calcium 9.2 mg/dL (8.4-10.2); Carbon Dioxide 30 mmol/L (22-30); Chloride 103 mmol/L (98-107); Estimated Glomerular Filt Rate > 60; Glucose 97 mg/dL (65-110); Potassium 4.3 mmol/L (3.4-5.0); Sodium 141 mmol/L (137-145)
== END 2024-12-09 08:54 | disposition home or self-care (01) ==
LOC: ANHLAB 08:55
PROVIDERS: PCP Internal Medicine; Visit Provider Internal Medicine Hematology & Oncology
DX: R63.4 Abnormal weight loss (principal)
CPT/HCPCS: 36415; 80053; 85025